=== PATIENT | female | born 1935 | race Caucasian/White ===

== ENCOUNTER 2017-01-12 11:27 | Emergency (ER) | payer MEDICARE, OTHER ==
[2017-01-12 11:54] VITALS: TEMP 98; O2SAT 97
[2017-01-12 12:19] VITALS: RESP 16
--- NOTE | 2017-01-12 12:50 | C.PDOC ---
History Of Present Illness 81F c/o feeling "dizzy" which started this morning. she describes as spinning sensation which is intermittent and worse w head movement. also notes posterior neck and head pain but says this is more chronic in nature, per pts daughter for at least 7 months. Time Seen by Provider: 01/12/17 12:19 Chief Complaint (Nursing): Dizziness/Lightheaded Past Medical History Vital Signs: Last Vital Signs Temp 98.0 F 01/12/17 11:53 Pulse 62 01/12/17 15:39 Resp 16 01/12/17 15:39 BP 159/72 H 01/12/17 15:39 Pulse Ox 97 01/12/17 15:39 - Medical History PMH: HTN Family History: States: Other Other Family History: nc - Social History Hx Alcohol Use: No Hx Substance Use: No - Immunization History Hx Tetanus Toxoid Vaccination: No Hx Influenza Vaccination: Yes (2016) Hx Pneumococcal Vaccination: No Review Of Systems Except As Marked, All Systems Reviewed And Found Negative. Constitutional: Negative for: Fever, Chills Eyes: Negative for: Vision Change Cardiovascular: Negative for: Chest Pain Respiratory: Negative for: Cough, Shortness of Breath Gastrointestinal: Positive for: Nausea. Negative for: Vomiting, Abdominal Pain Musculoskeletal: Positive for: Neck Pain Neurological: Positive for: Headache, Dizziness. Negative for: Weakness, Numbness, Confusion, Altered Mental Status Physical Exam - Physical Exam Appears: Well, Non-toxic, No Acute Distress Skin: Warm, Dry Head: Atraumatic Eye(s): bilateral: PERRL, EOMI Nose: No Epistaxis Oral Mucosa: Moist Lips: No Swelling Neck: Normal ROM, Supple Cardiovascular: Rhythm Regular Respiratory: No Decreased Breath Sounds, No Accessory Muscle Use, No Rales, No Rhonchi, No Wheezing Gastrointestinal/Abdominal: Soft, No Tenderness Extremity: No Swelling Neurological/Psych: Oriented x3, Normal Cranial Nerves, No Cerebellar Signs, Normal Motor, Normal Sensation, Other (no focal deficits) ED Course And Treatment - Laboratory Results Result Diagrams: 01/12/17 14:27 O2 Sat by Pulse Oximetry: 97 Medical Decision Making Medical Decision Making: after several attempts unable to obtain enough blood for cbc. 1620 the pt is feeling much better and is comfortable w dc at this time without cbc. will f/u w pcp and return if worse. Disposition - Disposition Disposition: HOME/ ROUTINE Disposition Time: 16:21 Condition: IMPROVED - Clinical Impression Clinical Impression: Vertigo
--- NOTE | 2017-01-12 14:21 | CT ---
PROCEDURE: CT HEAD WITHOUT CONTRAST. HISTORY: headache dizzy COMPARISON: Noncontrast head CT performed 01/17/13 TECHNIQUE: Axial computed tomography images were obtained through the head/brain without intravenous contrast. Radiation dose: Total exam DLP = 728.60 mGy-cm. This CT exam was performed using one or more of the following dose reduction techniques: Automated exposure control, adjustment of the mA and/or kV according to patient size, and/or use of iterative reconstruction technique. FINDINGS: HEMORRHAGE: No intracranial hemorrhage. BRAIN: Mild diffuse atrophy with prominence of the ventricles and sulci noted. No mass effect or edema. Intracranial atherosclerotic calcifications. Scattered white matter hypodensities, which are nonspecific, but often seen with chronic microvascular ischemic disease. Please note that MRI with diffusion imaging is more sensitive in the detection of acute ischemic event. VENTRICLES: No hydrocephalus. CALVARIUM: Unremarkable. PARANASAL SINUSES: Unremarkable as visualized. No significant inflammatory changes. MASTOID AIR CELLS: Unremarkable as visualized. No inflammatory changes. OTHER FINDINGS: None. IMPRESSION: Mild generalized atrophy. Mild nonspecific white matter changes.
[2017-01-12 14:39] LABS: CHLORIDE 102 mmol/L (98-107)
[2017-01-12 14:40] LABS: POTASSIUM 5.2 mmol/L (3.6-5.2); SODIUM 137 mmol/L (132-148)
[2017-01-12 14:43] LABS: ALB/GLOB RATIO 1.2 (1.0-2.1); ALKALINE PHOSPHATASE 67 U/L (38-126); ALT/SGPT 30 U/L (9-52); AST/SGOT 32 U/L (14-36); BILIRUBIN,TOTAL 0.7 mg/dL (0.2-1.3); BLOOD UREA NITROGEN 17 mg/dL (7-17); CALCIUM 9.3 mg/dl (8.6-10.4); CARBON DIOXIDE 27 mmol/L (22-30); GFR AFRICAN-AMERICAN > 60; GLUCOSE,RANDOM 81 mg/dL (65-105); TOTAL PROTEIN 7.5 g/dL (6.3-8.3)
[2017-01-12 15:44] VITALS: BP 159/72; PULSE 62
--- NOTE | 2017-01-17 21:38 | CARD ---
APPROVED REPORT EKG Measurement Heart [id number] [id number] <Conclusion> Normal sinus rhythm RSR' or QR pattern in V1 suggests right ventricular conduction delay Nonspecific ST abnormality Abnormal ECG
== END 2017-01-12 16:29 | disposition home or self-care (01) ==
LOC: C.ER 11:27
DX: R42 Dizziness and giddiness (principal)
CPT/HCPCS: 70450; 80053; 93005; 96374; 96375; 99285; J1885; J2405

== ENCOUNTER 2017-10-07 12:07 | Emergency (ER) | payer MEDICARE, OTHER ==
[2017-10-07 12:17] VITALS: BMI 25.8
[2017-10-07 12:23] VITALS: TEMP 97.5
[2017-10-07] MEDS ORDERED: Sodium Chloride 0.9% 500 ML IV ONE ×2 (13:40→13:59)
[2017-10-07 14:17] LABS: BASO # 0.1 K/uL (0.0-0.2); BASO % 1.2 % (0.0-2.0); EOS % 13.2 % (0.0-4.0); HEMOGLOBIN 12.8 g/dL (11.0-16.0); LYMPH # 2.5 K/uL (1.0-4.3); LYMPH % 33.5 % (20.0-40.0); MEAN CELL VOLUME 90.8 fL (81.0-99.0); MEAN CORPUSCULAR HEMOGLOBIN 31.7 pg (27.0-31.0); MEAN CORPUSCULAR HGB CONC 34.9 g/dL (33.0-37.0); MEAN PLATELET VOLUME 9.2 fL (7.2-11.7); MONO # 0.6 K/uL (0.0-0.8); MONO % 7.8 % (0.0-10.0); NEUT # 3.3 K/uL (1.8-7.0); NEUT % 44.3 % (50.0-75.0); RBC 4.04 Mil/uL (3.80-5.20); RED CELL DISTRIBUTION WIDTH 12.7 % (11.5-14.5); WHITE BLOOD COUNT 7.4 K/uL (4.8-10.8)
[2017-10-07 14:28] LABS: ALB/GLOB RATIO 1.1 (1.0-2.1); ALBUMIN 4.3 g/dL (3.5-5.0); ALT/SGPT 25 U/L (9-52); AST/SGOT 27 U/L (14-36); BLOOD UREA NITROGEN 17 mg/dL (7-17); CALCIUM 9.7 mg/dl (8.6-10.4); GFR AFRICAN-AMERICAN > 60; GFR NON-AFRICAN AMERICAN > 60
--- NOTE | 2017-10-07 14:28 | CT ---
PROCEDURE: CT HEAD WITHOUT CONTRAST. HISTORY: Headache, Dizziness COMPARISON: None available. TECHNIQUE: Axial computed tomography images were obtained through the head/brain without intravenous contrast. Radiation dose: Total exam DLP = 748.21 mGy-cm. This CT exam was performed using one or more of the following dose reduction techniques: Automated exposure control, adjustment of the mA and/or kV according to patient size, and/or use of iterative reconstruction technique. FINDINGS: HEMORRHAGE: No intracranial hemorrhage. BRAIN: No mass effect or edema. No significant atrophy. Mild periventricular white matter lucency consistent with chronic microvascular ischemic change. No evidence of acute infarct. VENTRICLES: Unremarkable. No hydrocephalus. CALVARIUM: Unremarkable. PARANASAL SINUSES: Unremarkable as visualized. No significant inflammatory changes. MASTOID AIR CELLS: Unremarkable as visualized. No inflammatory changes. OTHER FINDINGS: None. IMPRESSION: No intracranial mass, hemorrhage or evidence of acute infarct. Mild chronic white matter ischemic change. Otherwise unremarkable.
--- NOTE | 2017-10-07 14:40 | C.PDOC ---
Time Seen by Provider: 10/07/17 13:13 Chief Complaint (Nursing): Dizziness/Lightheaded History Per: Patient, Family Onset/Duration Of Symptoms: Days (about 1 month), Intermittent Episodes Current Symptoms Are (Timing): Still Present Seizure Or Post-ictal Symptoms: None Fall Associated With With Symptoms: No Severity: Moderate Additional History Per: Prior Records - Symptoms Of CVA Recent Head Trauma: No Past Medical History Reviewed: Historical Data, Nursing Documentation, Vital Signs Vital Signs: Last Vital Signs Temp 97.5 F L 10/07/17 12:19 Pulse 71 10/07/17 12:19 Resp 20 10/07/17 12:19 BP 131/63 10/07/17 12:19 Pulse Ox 100 10/07/17 14:41 - Medical History PMH: HTN Surgical History: Coronary Stent Family History: States: Unknown Family Hx - Social History Hx Alcohol Use: No Hx Substance Use: No - Immunization History Hx Tetanus Toxoid Vaccination: No Hx Influenza Vaccination: Yes (2015) Hx Pneumococcal Vaccination: No Review Of Systems Except As Marked, All Systems Reviewed And Found Negative. Constitutional: Negative for: Fever, Weakness ENT: Positive for: Ear Pain (intermittent left ear tinnitus). Negative for: Ear Discharge Cardiovascular: Negative for: Chest Pain Respiratory: Negative for: Shortness of Breath Gastrointestinal: Positive for: Nausea. Negative for: Vomiting, Abdominal Pain Genitourinary: Negative for: Dysuria Skin: Negative for: Rash Neurological: Positive for: Headache, Dizziness. Negative for: Weakness, Numbness, Seizures, Altered Mental Status Physical Exam - Physical Exam Appears: Non-toxic, No Acute Distress Skin: Normal Color, Warm, Dry, No Rash Head: Atraumatic, Normacephalic Eye(s): bilateral: Normal Inspection, PERRL, EOMI Ear(s): Bilateral: Normal Neck: Normal ROM, Supple Cardiovascular: Rhythm Regular Respiratory: Normal Breath Sounds, No Accessory Muscle Use Gastrointestinal/Abdominal: Soft, No Tenderness Back: No CVA Tenderness Extremity: Normal ROM Neurological/Psych: Oriented x3, Normal Speech, Normal Cognition, No Cerebellar Signs, Normal Motor, Normal Sensation ED Course And Treatment - Laboratory Results Result Diagrams: 10/07/17 14:12 10/07/17 14:12 Lab Interpretation: No Acute Changes ECG: Interpreted By Me, Viewed By Me ECG Rhythm: Sinus Rhythm, R BBB (incomplete), Nonspecific Changes ECG Interpretation: No Changes From Prior Rate From EC O2 Sat by Pulse Oximetry: 100 Pulse Ox Interpretation: Normal - CT Scan/US CT head Other Rad Studies (CT/US): Read By Radiologist, Radiology Report Reviewed CT/US Interpretation: IMPRESSION: No intracranial mass, hemorrhage or evidence of acute infarct. Mild chronic white matter ischemic change. Otherwise unremarkable. Progress Note: Pt is currently asymptomatic after Meclizine. Reassessment Condition: Improved Disposition Counseled Patient/Family Regarding: Studies Performed, Diagnosis, Need For Followup, Rx Given - Disposition Referrals: Lev Calix MD [Medical Doctor] - Stephane Jackson MD [Staff Provider] - Disposition: HOME/ ROUTINE Disposition Time: 14:45 Condition: IMPROVED Additional Instructions: Follow up with your doctor and with an ENT specialist for further evaluation and treatment. Return to the ER if you develop trouble walking, vomiting, weakness, numbness, worsening of symptoms or if you have any other concerns. Prescriptions: Meclizine [Meclizine*] 25 mg PO Q6 PRN #30 tab PRN Reason: Dizziness Instructions: Vertigo (a Type of Dizziness) (DC) Forms: [employer] (Belgian) Print Language: SAMMARINESE - Clinical Impression Clinical Impression: Dizziness
[2017-10-07 15:12] VITALS: BP 145/72; PULSE 80; RESP 18; O2SAT 97
--- NOTE | 2017-10-08 17:33 | CARD ---
APPROVED REPORT EKG Measurement Heart [id number] [id number] <Conclusion> Normal sinus rhythm RSR' or QR pattern in V1 suggests right ventricular conduction delay Borderline ECG
== END 2017-10-07 15:13 | disposition home or self-care (01) ==
LOC: C.ER 12:07
DX: R42 Dizziness and giddiness (principal); I10 Essential (primary) hypertension
CPT/HCPCS: 70450; 80053; 84484; 85025; 93005; 96360; 99285; J7040

== ENCOUNTER 2018-04-09 22:20 | Emergency (ER) | payer MEDICARE, OTHER ==
[2018-04-09 22:20] VITALS: BMI 25.8
[2018-04-09 22:30] VITALS: RESP 20; TEMP 98.1
[2018-04-09 23:14] LABS: BASO # 0.1 K/uL (0.0-0.2); BASO % 1.1 % (0.0-2.0); EOS # 1.3 K/uL (0.0-0.7); EOS % 15.7 % (0.0-4.0); HEMOGLOBIN 11.8 g/dL (11.0-16.0); LYMPH # 2.5 K/uL (1.0-4.3); LYMPH % 29.6 % (20.0-40.0); MEAN CELL VOLUME 90.5 fL (81.0-99.0); MEAN CORPUSCULAR HEMOGLOBIN 31.3 pg (27.0-31.0); MEAN CORPUSCULAR HGB CONC 34.6 g/dL (33.0-37.0); MEAN PLATELET VOLUME 9.3 fL (7.2-11.7); MONO # 0.8 K/uL (0.0-0.8); MONO % 9.8 % (0.0-10.0); NEUT # 3.8 K/uL (1.8-7.0); NEUT % 43.8 % (50.0-75.0); NRBC % 0.1 % (0.0-2.0); RBC 3.77 Mil/uL (3.80-5.20); RED CELL DISTRIBUTION WIDTH 13.3 % (11.5-14.5); WHITE BLOOD COUNT 8.6 K/uL (4.8-10.8)
[2018-04-09 23:24] LABS: CALCIUM 9.1 mg/dl (8.6-10.4); GFR NON-AFRICAN AMERICAN 60
[2018-04-09 23:25] LABS: ALB/GLOB RATIO 1.2 (1.0-2.1); ALBUMIN 4.2 g/dL (3.5-5.0); ALT/SGPT 21 U/L (9-52); AST/SGOT 33 U/L (14-36); BLOOD UREA NITROGEN 21 mg/dL (7-17)
[2018-04-09 23:36] LABS: B-TYPE NATRIURETIC PEPTIDE 198 pg/mL (0-900)
--- NOTE | 2018-04-09 23:49 | C.PDOC ---
History Of Present Illness Patient presents to the ED for evaluation of mild sore throat and occasional shortness of breath for two months. She denies shortness of breath currently. Patient states she was evaluated by her PMD and given prescription for three pills/day, but does not recall the name. She denies fever, chills. Time Seen by Provider: 04/09/18 22:34 Chief Complaint (Nursing): High Blood Pressure History Per: Patient History/Exam Limitations: None Onset/Duration Of Symptoms: Days Current Symptoms Are (Timing): Still Present Past Medical History Reviewed: Historical Data, Nursing Documentation, Vital Signs Vital Signs: Last Vital Signs Temp 98.1 F 04/09/18 22:26 Pulse 67 04/10/18 00:00 Resp 20 04/10/18 00:00 BP 200/75 H 04/10/18 00:00 Pulse Ox 97 04/10/18 00:00 - Medical History PMH: HTN, Hypercholesterolemia Surgical History: Coronary Stent Family History: States: Unknown Family Hx - Social History Hx Alcohol Use: No Hx Substance Use: No - Immunization History Hx Tetanus Toxoid Vaccination: No Hx Influenza Vaccination: Yes (2016) Hx Pneumococcal Vaccination: No Review Of Systems ENT: Positive for: Throat Pain Respiratory: Positive for: Shortness of Breath Physical Exam - Physical Exam Appears: Non-toxic, No Acute Distress, Other (fair-skinned ) Skin: Normal Color, Warm, Dry Head: Atraumatic, Normacephalic Eye(s): bilateral: Normal Inspection Ear(s): Bilateral: Normal Nose: Normal, No Discharge Oral Mucosa: Moist Throat: Normal, No Erythema, No Exudate Neck: Supple Lymphatic: No Adenopathy Chest: Symmetrical, No Deformity, No Tenderness Cardiovascular: Rhythm Regular, No Murmur Respiratory: Normal Breath Sounds, No Rales, No Rhonchi, No Wheezing Extremity: Normal ROM Neurological/Psych: Oriented x3, Normal Speech, Normal Cognition ED Course And Treatment - Laboratory Results Result Diagrams: 04/09/18 23:09 04/09/18 23:09 Lab Interpretation: Normal (trop/bnp neg.) ECG: Interpreted By Me ECG Rhythm: Sinus Rhythm ECG Interpretation: Normal Rate From EC O2 Sat by Pulse Oximetry: 98 (on RA) Pulse Ox Interpretation: Normal - Radiology CXR: Interpreted by Me CXR Interpretation: Yes: No Acute Disease Progress Note: bloodwork, UA, CXR, EKG ordered and reviewed. Motrin PO given. Reevaluation Time: 23:48 Reassessment Condition: Improved Medical Decision Making Medical Decision Making: occasional sore throat, now not occasional sob, now not normal workup, normal exam. continue NSAIDS and opt f/u. PRN Disposition Doctor Will See Patient In The: Office Counseled Patient/Family Regarding: Studies Performed, Diagnosis - Disposition Referrals: Kevin Santana MD [Staff Provider] - Disposition: HOME/ ROUTINE Disposition Time: 23:49 Condition: GOOD Additional Instructions: continue motrin/advil 400 mg every 6 hours as needed normal laboratory workup today Instructions: Sore Throat in Adults Forms: [employer] (Greenlandic) - Clinical Impression Clinical Impression: Sore throat - Scribe Statement The provider has reviewed the documentation as recorded by the Scribe (Jeny Dailey) Provider Attestation: All medical record entries made by the Scribe were at my direction and personally dictated by me. I have reviewed the chart and agree that the record accurately reflects my personal performance of the history, physical exam, medical decision making, and the department course for this patient. I have also personally directed, reviewed, and agree with the discharge instructions and disposition.
[2018-04-10 00:07] VITALS: BP 200/75; PULSE 67
[2018-04-10 07:25] VITALS: O2SAT 98
--- NOTE | 2018-04-10 09:30 | RAD ---
Date of service: 04/09/2018 PROCEDURE: CHEST RADIOGRAPH, 1 VIEW HISTORY: SOB COMPARISON: Chest radiographs 08/28/2012. FINDINGS: LUNGS: Diminished history volume. No acute infiltrate bilaterally. Minimal fibrosis again seen the inferior left lung zone laterally. PLEURA: No pneumothorax or pleural fluid seen. CARDIOVASCULAR: Normal. OSSEOUS STRUCTURES: No significant abnormalities. VISUALIZED UPPER ABDOMEN: Normal. OTHER FINDINGS: None. IMPRESSION: No acute infiltrate bilaterally. 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 Cardiomediastinal silhouette stable.
--- NOTE | 2018-04-12 16:48 | CARD ---
APPROVED REPORT Date of service: 04/09/2018 EKG Measurement Heart [id number] MT 174P48 [id number] <Conclusion> Sinus bradycardia Incomplete right bundle branch block Borderline ECG
== END 2018-04-10 00:12 | disposition home or self-care (01) ==
LOC: C.ER 22:20
DX: J02.9 Acute pharyngitis, unspecified (principal); E78.00 Pure hypercholesterolemia, unspecified; I10 Essential (primary) hypertension

== ENCOUNTER 2018-12-19 10:10 | Outpatient (CLI) | payer MEDICARE, OTHER | END 2018-12-20 | LOC: C.RADH 10:10 | DX: R10.13 Epigastric pain (principal) ==

== ENCOUNTER 2019-01-02 08:51 | Emergency (ER) | payer MEDICARE, OTHER ==
[2019-01-02 09:10] VITALS: BMI 25.2
[2019-01-02] MEDS ORDERED: Albuterol 0.083% Inhal Sol (2.5 mg/3 mL) UD ONE ×3 (09:37→11:17)
[2019-01-02 09:49] LABS: BASO # 0.1 K/uL (0.0-0.2); BASO % 0.8 % (0.0-2.0); EOS # 1.7 K/uL (0.0-0.7); EOS % 25.8 % (0.0-4.0); LYMPH # 2.2 K/uL (1.0-4.3); LYMPH % 32.7 % (20.0-40.0); MEAN CELL VOLUME 91.2 fL (81.0-99.0); MEAN CORPUSCULAR HEMOGLOBIN 31.4 pg (27.0-31.0); MEAN CORPUSCULAR HGB CONC 34.4 g/dL (33.0-37.0); MEAN PLATELET VOLUME 8.8 fL (7.2-11.7); MONO # 0.6 K/uL (0.0-0.8); MONO % 8.9 % (0.0-10.0); NEUT # 2.1 K/uL (1.8-7.0); NEUT % 31.8 % (50.0-75.0); NRBC % 0.1 % (0.0-2.0); PLATELET COUNT 230 K/uL (130-400); RBC 3.82 Mil/uL (3.80-5.20); RED CELL DISTRIBUTION WIDTH 12.5 % (11.5-14.5); WHITE BLOOD COUNT 6.7 K/uL (4.8-10.8)
[2019-01-02 10:09] LABS: ALB/GLOB RATIO 1.2 (1.0-2.1); ALBUMIN 4.1 g/dL (3.5-5.0); ALT/SGPT 14 U/L (9-52); AST/SGOT 29 U/L (14-36); BLOOD UREA NITROGEN 19 mg/dL (7-17); CALCIUM 9.4 mg/dl (8.6-10.4); GFR NON-AFRICAN AMERICAN > 60
[2019-01-02] MEDS: Albuterol 0.083% Inhal Sol (2.5 mg/3 mL) UD INH SCH (10:11)
[2019-01-02 10:14] LABS: B-TYPE NATRIURETIC PEPTIDE 141 pg/mL (0-900)
[2019-01-02 10:27] VITALS: O2SAT 96
--- NOTE | 2019-01-02 10:35 | RAD ---
HISTORY: chest pain COMPARISON: Chest x-ray performed 04/09/18 TECHNIQUE: Chest, one view. FINDINGS: Examination limited by habitus. LUNGS: Subsegmental atelectasis, lung bases. No focal consolidation. Please note that chest x-ray has limited sensitivity for the detection of pulmonary masses. PLEURA: No significant pleural effusion identified. No definite pneumothorax . CARDIOVASCULAR: Borderline cardiomegaly. Atherosclerotic calcifications of the aorta present. OSSEOUS STRUCTURES: No acute osseous abnormality identified. VISUALIZED UPPER ABDOMEN: Unremarkable. OTHER FINDINGS: None. IMPRESSION: Borderline cardiomegaly. Subsegmental atelectasis, lung bases.
--- NOTE | 2019-01-02 10:55 | C.PDOC ---
History Of Present Illness 83 year old female with a history of high cholesterol and CAD presents to the emergency department with complaints of cough, anterior chest wall pain, runny nose, and "whistle in chest" for the last three weeks. Patient denies fever, nausea, vomiting, and shortness of breath. Patient states that her chest pain has been intermittent but is reproducible. Time Seen by Provider: 01/02/19 09:30 Chief Complaint (Nursing): Shortness Of Breath History Per: Patient History/Exam Limitations: no limitations Onset/Duration Of Symptoms: Intermittent Episodes, Other (3 weeks) Current Symptoms Are (Timing): Still Present Quality: "Pain" Associated Symptoms: Other (cough, runny nose, chest pain). denies: Fever, Chills Past Medical History Reviewed: Historical Data, Nursing Documentation, Vital Signs Vital Signs: Last Vital Signs Temp 98.6 F 01/02/19 09:12 Pulse 80 01/02/19 10:26 Resp 18 01/02/19 10:26 BP 151/71 H 01/02/19 10:26 Pulse Ox 96 01/02/19 10:26 Primary Care Provider: Lev Calix - Medical History PMH: CAD, HTN, Hypercholesterolemia Surgical History: Coronary Stent Family History: States: No Known Family Hx - Social History Hx Alcohol Use: No Hx Substance Use: No - Immunization History Hx Tetanus Toxoid Vaccination: No Hx Influenza Vaccination: Yes (2018) Hx Pneumococcal Vaccination: No Review Of Systems Except As Marked, All Systems Reviewed And Found Negative. Constitutional: Negative for: Fever, Chills Cardiovascular: Positive for: Chest Pain Respiratory: Positive for: Cough, Other (whistling). Negative for: Shortness of Breath Gastrointestinal: Negative for: Nausea, Vomiting Physical Exam - Physical Exam Appears: Non-toxic, No Acute Distress Skin: Normal Color, Warm, Dry Head: Atraumatic, Normacephalic Eye(s): bilateral: Normal Inspection, PERRL, EOMI Neck: Normal, Supple Chest: Symmetrical, Tenderness (reproducible chest wall tenderness ) Cardiovascular: Rhythm Regular, No Murmur Respiratory: No Rales, No Rhonchi, Wheezing (b/l wheeze right side greater than left) Gastrointestinal/Abdominal: Soft, No Tenderness Extremity: No Swelling (pitting edema) Neurological/Psych: Oriented x3, Normal Speech, Normal Cognition ED Course And Treatment - Laboratory Results Result Diagrams: 01/02/19 09:46 01/02/19 09:46 Lab Results: Troponin I < 0.0120 ng/mL (0.00-0.120) 01/02/19 09:46 NT-Pro-B Natriuret Pep 141 pg/mL (0-900) 01/02/19 09:46 Total Bilirubin 0.3 mg/dL (0.2-1.3) 01/02/19 09:46 AST 29 U/L (14-36) 01/02/19 09:46 ALT 14 U/L (9-52) 01/02/19 09:46 Alkaline Phosphatase 69 U/L (38-126) 01/02/19 09:46 Total Protein 7.5 g/dL (6.3-8.3) 01/02/19 09:46 Albumin 4.1 g/dL (3.5-5.0) 01/02/19 09:46 Globulin 3.4 gm/dL (2.2-3.9) 01/02/19 09:46 Albumin/Globulin Ratio 1.2 (1.0-2.1) 01/02/19 09:46 O2 Sat by Pulse Oximetry: 96 (RA) Pulse Ox Interpretation: Normal - Other Rad CXR X-Ray: Viewed By Me, Read By Radiologist Interpretation: IMPRESSION: Borderline cardiomegaly. Subsegmental atelectasis, lung bases. Progress Note: On re-evaluation, patient is still wheezing but reports feeling better. Patient denies fever, chills, headache. Patient is to f/u with PMD. Patient discharged with albuterol pump, steroids, and antibiotics. Medical Decision Making Medical Decision Making: Plan: EKG Chemistry CBC CXR Albuterol Prednisone 60mg PO Nebulizer Treatment Disposition - Disposition Disposition: HOME/ ROUTINE Disposition Time: 13:15 Condition: IMPROVED Prescriptions: Albuterol HFA [Ventolin HFA 90 mcg/actuation (8 g)] 2 puff IH TID #1 inhaler Azithromycin [Z-Blade] 250 mg PO DAILY #6 tab Loratadine [Claritin] 10 mg PO BID #12 tab Prednisone [Deltasone] 40 mg PO DAILY #6 tablet Instructions: Acute Bronchitis Forms: [employer] (Danish), Gen Discharge Inst Danish - POA Present On Arrival: None - Clinical Impression Clinical Impression: Bronchitis - Scribe Statement The provider has reviewed the documentation as recorded by the Scribe (Selwyn Francisco) Provider Attestation: All medical record entries made by the Scribe were at my direction and personally dictated by me. I have reviewed the chart and agree that the record accurately reflects my personal performance of the history, physical exam, medical decision making, and the department course for this patient. I have also personally directed, reviewed, and agree with the discharge instructions and disposition.
[2019-01-02 11:02] LABS: EOSINOPHIL 21 % (0-4); LYMPHOCYTE 35 % (20-40); MONOCYTE 6 % (0-10); NEUTROPHIL 37 % (50-75); PLATELET ESTIMATE NORMAL (NORMAL); REACTIVE LYMPHOCYTES 1 % (0-0); TOTAL CELLS COUNTED 100
[2019-01-02] MEDS ORDERED: Albuterol 0.083% Inhal Sol (2.5 mg/3 mL) UD INH STA (11:10)
[2019-01-02 13:32] VITALS: BP 153/77; PULSE 86; RESP 16; TEMP 97.9
== END 2019-01-02 13:33 | disposition home or self-care (01) ==
LOC: C.ER 08:51
DX: J40 Bronchitis, not specified as acute or chronic (principal)